=== PATIENT | male | born 1975 | race Asian ===

== ENCOUNTER 2017-05-07 09:38 | Emergency (ER) | payer BC ==
[~2017-05-07] VITALS: Ht 185.4 cm; Wt 83.9 kg
[2017-05-07] MEDS ORDERED: LIDOCAINE HCL 1% 20 ML VIAL TP ONE (10:00)
[2017-05-07] MEDS ORDERED: NEOMY/BACITRA/POLYMYXIN B OINT UD PACKET TP ONE ×2 (10:00→10:19)
[2017-05-07] MEDS: HYDROCODONE/APAP 10-325 MG TABLET PO ONE ×2 (10:02→10:15)
[2017-05-07] MEDS ORDERED: IBUPROFEN 800 MG TABLET PO ONE (10:15)
[2017-05-07] MEDS ORDERED: LIDOCAINE HCL 1% 20 ML VIAL ONE (10:19)
[2017-05-07] MEDS ORDERED: HYDROCODONE/APAP 10-325 MG TABLET ONE (10:19)
[2017-05-07] MEDS ORDERED: IBUPROFEN 800 MG TABLET ONE (10:33)
--- NOTE | 2017-05-07 10:55 | NUR ---
[facility] AT BEDSIDE.
--- NOTE | 2017-05-07 11:35 | NUR ---
Patient discharged to home in stable conditon. Written and verbal after care instructions given. Patient verbalizes understanding of instructions.PT WALKS IN STEADY GAIT, PT WAITING FOR SISTER TO COME AND MEMBER OF THE LEGISLATIVE COUNCIL THE PT.
[2017-05-07 11:36] VITALS: BP 121/78
== END 2017-05-07 11:37 | disposition home or self-care (01) ==
LOC: ER 09:38
DX: S81.812A Laceration without foreign body, left lower leg, initial encounter (principal); V29.9XXA Motorcycle rider (driver) (passenger) injured in unspecified traffic accident, initial encounter; Y93.89 Activity, other specified; Y92.410 Unspecified street and highway as the place of occurrence of the external cause; Y99.8 Other external cause status
CPT/HCPCS: 12001; 73130; 73502; 73564 ×2; 99284; A4217 ×2; A4663; J3490